=== PATIENT | male | born 1950 | race Caucasian/White ===

== ENCOUNTER → 2021-09-13 | Outpatient (CLI) | payer MEDICARE, BC ==
[2021-09-13 07:00] LABS: African American GFR (CKD) >90 (>60 ml/min/1.73 sqM); Blood Urea Nitrogen 18 mg/dL (9-20); Non-African American GFR(CKD) >90 (>60 ml/min/1.73 sqM)
--- NOTE | 2021-09-13 08:10 | CT ---
EXAMINATION TYPE: CT angio abdomen pelvis DATE OF EXAM: 09/13/2021 COMPARISON: None HISTORY: Abdominal aortic aneurysm without rupture x5 years. CT DLP: 1224.1 mGycm CONTRAST: CTA abdominal aorta with 3-D reconstruction is performed without Oral Contrast and with IV Contrast, patient injected with 100 ML mL of Isovue 370. Contrast CTA of the abdominal aorta was performed from the lung bases through the pelvis. 3-D recons truction imaging obtained at a separate workstation. CONTRAST CT ABDOMEN AND PELVIS ABDOMINAL AORTA: There is infrarenal abdominal aortic aneurysm measuring 5.5 cm AP dimension. Large a mount of mural thrombus is noted with the patent lumen measuring 3.9 x 1.9 cm. Aneurysm neck measures 3.6 cm. There is extension to the aortic bifurcation. Ectasia of the common iliac arteries and inter nal and external iliac arteries without additional aneurysm. There is additional mural thrombus and c alcific plaque. No evidence for dissection. Major branch vessels of the abdominal aorta are patent. LIVER/GB-renal cystic changes noted. PANCREAS- No significant abnormality is seen. SPLEEN- No significant abnormality is seen. ADRENALS- No significant abnormality is seen. KIDNEYS/BLADDER- No significant abnormality is seen. BOWEL- No Significant abnormality GENITAL ORGANS: No gross abnormality seen. LYMPH NODES- No greater than 1cm abdominal or pelvic lymph nodes areappreciated. OSSEOUS STRUCTURES- No significant abnormality is seen. OTHER- No significant abnormality is seen. IMPRESSION- 1. Infrarenal abdominal aortic aneurysm as noted.
== END | disposition home or self-care (01) ==
LOC: RADCTMAIN 06:29
PROVIDERS: ATTEND Surgery
DX: I71.4 Abdominal aortic aneurysm, without rupture (principal)
CPT/HCPCS: 82565; 84520; 36415; 74174; Q9967

== ENCOUNTER → 2021-12-01 | Outpatient (CLI) | payer MEDICARE, BC ==
[2021-12-01 10:28] LABS: African American GFR (CKD) >90 (>60 ml/min/1.73 sqM); Blood Urea Nitrogen 18 mg/dL (9-20); Non-African American GFR(CKD) >90 (>60 ml/min/1.73 sqM)
--- NOTE | 2021-12-03 10:50 | CT ---
EXAMINATION TYPE: CT angio abdomen pelvis DATE OF EXAM: 12/01/2021 COMPARISON: CTA abdomen and pelvis September 13, 2021 HISTORY: stent CT DLP: 1694.10 mGycm, Automated Exposure Control for Dose Reduction was Utilized. CONTRAST: CT scan of the abdomen and pelvis is performed without oral and without and with IV Contrast, patient injected with 100 mL of Isovue 300. Stent graft protocol with 3-D reconstructed images created on an independent workstation and reviewed. FINDINGS: VASCULAR: There is aortobiiliac stent graft through [place] AAA redemonstrated AAA. [place] AAA measure s up to 5.7 x 5.5 cm current study image 94. No aneurysm extension into the common iliac arteries is noted. Postcontrast images show patency of the stent graft. There is focus of increased opacity poste rior to the stent within the [place] aorta axial image 89 extending inferiorly and laterally. This carlie ginates superiorly near axial image 78 along proximal portion of the stent graft metallic portion jus t past the graft portion. No feeding vessel clearly seen. Delayed images show no enlarging increased density or new areas of abnormal density. There are patent bilateral renal arteries along with celiac artery and SMA. LUNG BASES: Increased opacity in the posterior lung bases with thin-walled cystic changes are redemon strated. LIVER/GB: A few scattered small thin-walled cysts throughout the liver are redemonstrated.. PANCREAS: No significant abnormality is seen. SPLEEN: No significant abnormality is seen. ADRENALS: No significant abnormality is seen. KIDNEYS: No significant abnormality is seen. BOWEL: Diverticula in these left and sigmoid colon are redemonstrated. No CT evidence for acute diver ticulitis. PROSTATE/SEMINAL VESICLES: No gross abnormality seen. LYMPH NODES: No greater than 1cm abdominal or pelvic lymph nodes are appreciated. OSSEOUS STRUCTURES: Levoconvex scoliotic curvature redemonstrated. Multilevel spurring and disc space narrowing in the mid to lower lumbar spine is redemonstrated. OTHER: None. IMPRESSION: 1. Interval placement of aortobiiliac stent graft with [place] AAA up to 5.7 cm in size redemonstrated . Size fairly stable from prior exam. There is CT evidence for endoleak as detailed above. Type Ia or type III endoleak is suspected.
== END | disposition home or self-care (01) ==
LOC: RADCTMAIN 09:41
PROVIDERS: ATTEND Surgery
DX: I71.4 Abdominal aortic aneurysm, without rupture (principal)
CPT/HCPCS: 82565; 84520; 36415; 74174; Q9967

== ENCOUNTER → 2022-12-07 | Outpatient (CLI) | payer MEDICARE ==
[2022-12-07 13:19] LABS: African American GFR (CKD) >90 (>60 ml/min/1.73 sqM); Blood Urea Nitrogen 19 mg/dL (9-20); Non-African American GFR(CKD) >90 (>60 ml/min/1.73 sqM)
--- NOTE | 2022-12-07 15:44 | CT ---
EXAMINATION TYPE: CT angio abdomen pelvis DATE OF EXAM: 12/07/2022 COMPARISON: 12/01/2021 HISTORY: 72-year-old male I71.43, h/o abdominal aneurysm with stent placement, f/u TECHNIQUE: Contiguous axial scanning of the abdomen and pelvis before and after administration of 100 ml Isovue 370 IV contrast. Delayed images through the stent and coronal/sagittal reconstructions pe rformed. 3 reconstructions generated on a dedicated independent workstation. CT DLP: 1860.7 mGycm Automated exposure control for dose reduction was used. FINDINGS: Heart is normal size without pericardial effusion. Emphysematous changes in the visualized lower lungs. No pleural effusion. Liver shows a few scattered small cysts measuring up to 2.1 cm. Portal venous system is patent. No bi liary ductal dilatation. Gallbladder, adrenal glands, kidneys, spleen, pancreas show no gross abnormality. No dilated small bowel, free fluid, or free air. No mesenteric or retroperitoneal lymphadenopathy. Aortobiiliac endovascular stent graft extending from just above the level of the celiac axis. The aneurysmal [place] sac measures up to 6.0 x 5.7 cm versus 6.1 x 5.8 cm, previously. Not significan tly changed. On delayed scan, there is redemonstration of endoleak which occurs along the periphery of the [place] sac. Normal appendix. Mild stool burden. Left-sided colonic diverticulosis, extensive in the sigmoid colon . No pericolonic inflammatory change. Bladder is urine distended. Prostate gland mildly enlarged at 4.3 cm wide with central prostatic calc ifications. A few scattered small pelvic phlebolith. No abnormal fluid collection pelvis or pelvic ly mphadenopathy. Bones: Mild to moderate degenerative change right hip and mild at the left hip. Mild degenerative abdoulaye nge SI joints. There is multilevel spondylotic change. Degenerated levoconvex scoliosis lumbar spine. IMPRESSION: 1. AORTOBIILIAC ENDOVASCULAR STENT GRAFT. THE [place] SAC IS RELATIVELY STABLE AT 6.0 CM VERSUS 6.1 CM , PREVIOUSLY. 2. HOWEVER, THERE IS REDEMONSTRATION OF A TYPE II ENDOLEAK. 3. LEFT-SIDED COLONIC DIVERTICULOSIS, EXTENSIVE IN THE SIGMOID COLON.
== END | disposition home or self-care (01) ==
LOC: RADCTMAIN 12:06
PROVIDERS: ATTEND Surgery
DX: I71.43 Infrarenal abdominal aortic aneurysm, without rupture (principal); K57.30 Diverticulosis of large intestine without perforation or abscess without bleeding; Z95.828 Presence of other vascular implants and grafts
CPT/HCPCS: 82565; 84520; 36415; 74174; Q9967

== ENCOUNTER → 2023-05-13 | Outpatient (CLI) | payer MEDICARE ==
--- NOTE | 2023-05-13 10:16 | CTL ---
EXAMINATION TYPE: CT Low Dose Lung DATE OF EXAM ORDERED: 05/13/2023 HISTORY: . Lung cancer screening CT DLP: mGycm CT CTDI: mGy Automated exposure control for dose reduction was used. SCREENING VISIT: Follow-up. COMPARISON: 05/27/2022. TECHNIQUE: Low dose computed tomography scan was performed through the chest at 1 mm thick sections a nd reconstructed images in multiple planes at 1 mm and [address] DIAGNOSTIC QUALITY: Satisfactory FINDINGS: LUNG NODULES: LUNGS: COPD: Severity: None Fibrosis: Severity: None Lymph nodes: No adenopathy. Other findings: RIGHT PLEURAL SPACE: Effusion: None Calcification: None Thickening: None Pneumothorax: None LEFT PLEURAL SPACE: Effusion: Severe diffuse centrilobular emphysema. Calcification: None Thickening: None Pneumothorax: None HEART: Heart Size: Normal Coronary Calcification: Mild patchy coronary calcifications are seen. Pericardial Effusion: None OTHER FINDINGS: Upper abdomen: Several cysts are seen within the liver. The visualized upper abdomen otherwise appear s unremarkable. Bony thorax: None Supraclavicular region: None Other: None IMPRESSION: 1. Unchanged pulmonary nodules. 2. Severe emphysema. 3. Mild coronary artery calcification. CT LUNG RAD AND CT CHEST RECOMMENDATION: Lung-Rad 2 Benign Appearance or Behavior: Continue annual sc reening with LDCT in 12 months.
== END | disposition home or self-care (01) ==
LOC: RADCTMAIN 06:44
PROVIDERS: ATTEND Family Medicine
DX: Z12.2 Encounter for screening for malignant neoplasm of respiratory organs (principal); J43.2 Centrilobular emphysema; R91.8 Other nonspecific abnormal finding of lung field; I25.10 Atherosclerotic heart disease of native coronary artery without angina pectoris; F17.210 Nicotine dependence, cigarettes, uncomplicated
CPT/HCPCS: 71271

== ENCOUNTER → 2024-01-21 | Outpatient (CLI) | payer MEDICARE ==
[2024-01-21 10:42] LABS: African American GFR (CKD) >90 (>60 ml/min/1.73 sqM); Blood Urea Nitrogen 18 mg/dL (9-20); Non-African American GFR(CKD) 88 (>60 ml/min/1.73 sqM)
--- NOTE | 2024-01-21 12:16 | CT ---
EXAMINATION TYPE: CT angio abdomen pelvis CT DLP: 1612 mGycm, Automated exposure control for dose reduction was used. DATE OF EXAM: 01/21/2024 11:45 AM COMPARISON:CTA abdomen and pelvis 12/07/2022, 12/01/2021, 09/14/2019 CLINICAL INDICATION:Male, 73 years old with history of AAA; check leaking stent TECHNIQUE: Multiple thin slice sub-millimeter images were obtained through the abdomen and pelvis bef ore and after administration of contrast. Patient was given Isovue 370, 100 cc intravenously. 3-D r econstructed images and maximum intensity projection images were obtained of the abdominal aorta and its branches. FINDINGS: CTA Abdomen and pelvis: Aortobiiliac endovascular stent graft extending just above the level of the c eliac axis redemonstrated. The aneurysm [place] sac measures 6.0 x 5.8, previously 6.0 x 5.7 cm. No si gnificant change. Redemonstration of endoleak which occurs along the periphery of the [place] sac on d elayed imaging. Probably from a lumbar artery. Atherosclerotic calcification of the aorta and its bra nches. The celiac axis, SMA, and bilateral single renal arteries are patent. The VALERIE is not well-visu alized. The common iliac arteries are patent. The bilateral internal/external arteries are patent wit h mild atherosclerotic plaque. VISCERA: The liver, spleen, adrenal glands, kidneys, pancreas, and gallbladder are not optimally enha nced due the arterial phase utilized. LIVER: The stable scattered cysts with largest measuring up to 2.6 cm. GALLBLADDER AND BILE DUCTS: Unremarkable. PANCREAS: Unremarkable. SPLEEN: Unremarkable. ADRENAL GLANDS: Unremarkable. KIDNEYS AND URETERS: No evidence of hydronephrosis or renal calculus. The kidneys enhance symmetrical ly. PELVIS BLADDER: Unremarkable REPRODUCTIVE: Coarse calcifications of the prostate gland are identified. ABDOMEN & PELVIS STOMACH AND BOWEL: Stomach and duodenum are unremarkable. Extensive distal colonic diverticulosis wit hout evidence for acute diverticulitis. No evidence of bowel obstruction. PERITONEUM: No evidence of pneumoperitoneum or free fluid. MUSCULOSKELETAL: No acute osseous abnormalities. Moderate multilevel degenerative disc disease. Mild to moderate degenerative changes of the right hip and mild degenerative change of the left hip. Mild degenerative changes of the SI joints. Degenerative levoconvex scoliosis of the lumbar spine. LYMPH NODES: No evidence for lymphadenopathy. SOFT TISSUE/ABDOMINAL WALL: Unremarkable LOWER CHEST: Emphysematous changes within the visualized lower lungs. IMPRESSION 1. Aortobiiliac endovascular stent graft with findings of type II endoleak again. [place] sac is stab le in size measuring 6.0 cm. 2. Distal colonic diverticulosis without evidence for acute diverticulitis. [facility], , 01/21/2024 12:14 PM
== END | disposition home or self-care (01) ==
LOC: RADCTMAIN 09:33
PROVIDERS: ATTEND Surgery
DX: I71.43 Infrarenal abdominal aortic aneurysm, without rupture (principal); K57.30 Diverticulosis of large intestine without perforation or abscess without bleeding; Z86.79 Personal history of other diseases of the circulatory system
CPT/HCPCS: 82565; 84520; 36415; 74174; Q9967

== ENCOUNTER → 2024-05-18 | Outpatient (CLI) | payer MEDICARE ==
--- NOTE | 2024-05-18 08:17 | CTL ---
EXAMINATION TYPE: CT Low Dose Lung DATE OF EXAM: 05/18/2024 7:58 AM COMPARISON: 05/13/2023 CLINICAL INDICATION: Male, 74 years old with history of Z12.2 LUNG CA SCREEN Z87.891 FORMER SMOKER; H x of smoking., history of tobacco use. TECHNIQUE: Multiple axial non-contrast scans were obtained from approximately the lung apices through the upper abdomen. Coronal and sagittal reformatted images were obtained. Low dose technique was uti lized. MIP were created on a separate workstation and submitted for review. CT DLP: 90.6 mGycm, Automated exposure control for dose reduction was used. CT Contrast: Contrast used: None Oral contrast used: None FINDINGS: Lack of intravenous contrast and low dose technique limits the evaluation of the vascular and soft ti ssue structures. LUNGS: No evidence of pulmonary fibrosis. No evidence of focal consolidation, pneumothorax or pleural effusion. Centrilobular emphysema changes. Nodules: RUL: None RML: Couple small nodules measuring 5 mm series 5 image 38 and 2 mm image 33 RLL: None. NAMRATA: None. LLL: None. AIRWAY: Patent and unremarkable. HEART: Size within normal limits. No significant coronary artery calcifications. MEDIASTINUM: No gross evidence of adenopathy. VASCULATURE: No aortic aneurysm. MUSCULOSKELETAL: Moderate disc degeneration changes are present throughout the thoracolumbar spine. SOFT TISSUES/LYMPH NODES: Unremarkable. LOWER NECK: No significant findings. UPPER ABDOMEN: Hepatic cyst medially in the right hepatic lobe. Partially visualized stent graft in t he aorta IMPRESSION: 1. No clinically significant pulmonary nodules. 2. Mild emphysema. CT LUNG RAD AND CT CHEST RECOMMENDATION: Lung-Rad 2 Benign Appearance or Behavior: Continue annual sc reening with LDCT in 12 months. S Modifier (other clinically significant findings): None Recommend smoking cessation (if current smoker), or continuation of smoking cessation (if prior smoke r). Annual screening for lung cancer with low-dose computed tomography is recommended in adults ages 55 to 77 years who have a 30 pack-year smoking history and currently smoke or have quit within the pa st 15 years. Screening should be discontinued once a person has not smoked for 15 years or develops a health problem that substantially limits life expectancy or the ability or willingness to have curat niki lung surgery. Lung rads 2021 [email or web address] [email or web address], , 05/18/2024 8:15 AM
== END | disposition home or self-care (01) ==
LOC: RADCTMAIN 07:33
PROVIDERS: ATTEND Family Medicine
DX: Z12.2 Encounter for screening for malignant neoplasm of respiratory organs (principal); J43.2 Centrilobular emphysema; Z87.891 Personal history of nicotine dependence
CPT/HCPCS: 71271